=== PATIENT | male | born 1980 | race Caucasian/White ===

== ENCOUNTER 2021-09-03 00:13 | Emergency (ER) | payer MEDICARE, OTHER ==
[~2021-09-03] VITALS: Ht 180.3 cm; Wt 83.9 kg
[2021-09-03 00:26] VITALS: BP 125/84
[2021-09-03] MEDS ORDERED: HYDR-4275 PO (01:04)
== END 2021-09-03 01:19 | disposition home or self-care (01) ==
LOC: ER 00:16
DX: K08.89 Other specified disorders of teeth and supporting structures (principal); Z76.0 Encounter for issue of repeat prescription; Z98.890 Other specified postprocedural states; Z79.891 Long term (current) use of opiate analgesic

== ENCOUNTER → 2023-02-22 | Emergency (ER) | payer MEDICARE, OTHER ==
[~2023-02-22] VITALS: Ht 180.3 cm; Wt 88.5 kg
[~2023-02-22] MED LIST: HYDR-4275 PO; LORAZEPAM 0.5 MG TABLET ONE; LORAZEPAM 0.5 MG TABLET PO ONE
--- NOTE | 2023-02-22 17:20 | NUR ---
PATIENT IS LEGALLY DEAF
--- NOTE | 2023-02-22 17:25 | NUR ---
CALLED TO TRIAGE, NO RESPONSE
--- NOTE | 2023-02-22 17:50 | NUR ---
C/O ANXIETY TODAY S/P "HELPING SOMEONE MOVE STUFF".
[2023-02-22 18:11] VITALS: BP 119/66
--- NOTE | 2023-02-22 18:12 | NUR ---
Patient discharged to home in stable condition. Written and verbal after care instructions given. Patient verbalizes understanding of instruction.
== END | disposition home or self-care (01) ==
LOC: ER 17:17
DX: F41.9 Anxiety disorder, unspecified (principal); Z60.2 Problems related to living alone; Z79.899 Other long term (current) drug therapy
CPT/HCPCS: 99283; A4223

== ENCOUNTER 2023-04-16 16:38 | Emergency (ER) | payer MEDICARE, OTHER ==
[~2023-04-16] VITALS: Ht 180.3 cm; Wt 86.2 kg
[~2023-04-16 16:38] MED LIST changes: -LORAZEPAM 0.5 MG TABLET ONE; -LORAZEPAM 0.5 MG TABLET PO ONE
[2023-04-16] MEDS ORDERED: HYDR-3980 PO (18:18)
[2023-04-16] MEDS ORDERED: HYDROCODONE/APAP 10/325MG TABLET ONE (18:22)
[2023-04-16] MEDS ORDERED: HYDROCODONE/APAP 10/325MG TABLET PO ONE (18:30)
[2023-04-16 18:31] VITALS: BP 122/77; TEMP 98.2; O2SAT 100
== END 2023-04-16 18:31 | disposition home or self-care (01) ==
LOC: ER 17:02
DX: M54.42 Lumbago with sciatica, left side (principal); Z60.2 Problems related to living alone

== ENCOUNTER 2023-05-04 10:09 | Emergency (ER) | payer MEDICARE, OTHER ==
[~2023-05-04] VITALS: Ht 180.3 cm; Wt 86.2 kg
[~2023-05-04 10:09] MED LIST changes: +HYDR-3980 PO
[2023-05-04] MEDS ORDERED: IBUP-1953 PO (12:23)
[2023-05-04 12:29] VITALS: BP 120/80; TEMP 98.1; O2SAT 97
== END 2023-05-04 12:30 | disposition home or self-care (01) ==
LOC: ER 10:12
DX: J02.9 Acute pharyngitis, unspecified (principal); Z98.890 Other specified postprocedural states; Z79.899 Other long term (current) drug therapy; Z60.2 Problems related to living alone
CPT/HCPCS: 86403-TC

== ENCOUNTER 2023-05-05 23:30 | Emergency (ER) | payer MEDICARE, OTHER ==
[~2023-05-05] VITALS: Ht 180.3 cm; Wt 86.2 kg
[~2023-05-05 23:30] MED LIST changes: +IBUP-1953 PO
[2023-05-06] MEDS ORDERED: HYDROCODONE/APAP 10/325MG TABLET ONE (01:11)
[2023-05-06] MEDS: HYDROCODONE/APAP 10/325MG TABLET PO ONE (01:11)
[2023-05-06] MEDS ORDERED: METH-647 PO (01:47)
[2023-05-06 02:11] VITALS: BP 119/71; TEMP 98.1; O2SAT 98
== END 2023-05-06 02:11 | disposition home or self-care (01) ==
LOC: ER 23:32
DX: M54.42 Lumbago with sciatica, left side (principal); Z98.890 Other specified postprocedural states; Z79.899 Other long term (current) drug therapy; Z60.2 Problems related to living alone
CPT/HCPCS: 72110-TC